=== PATIENT | female | born 1965 | race Two or more races ===

== ENCOUNTER 2019-01-07 08:05 | Inpatient (IN) | payer OTHER ==
[~2019-01-07] VITALS: Ht 160 cm; Wt 70.8 kg
[~2019-01-07 08:05] MED LIST: BENADRYL50 MG PO; CIPRO750 MG PO; CLONAZEPAM1 MG PO; DOCUSATE SODIU100 MG PO; GABAPENTIN800 MG PO; LAMICTAL PO; MORPHABOND; PERCOCET 5-3251 EACH PO; PERCOCET 5/3251 TAB PO; RESTORIL30 M1 PO; SEROQUEL200 MG PO; [UNRECOGNIZED DRUG - OTHER] PO; [UNRECOGNIZED DRUG - SUPPLY] PO
[2019-01-12] MEDS ORDERED: DOCUSATE SODIU100 MG PO (08:00)
[2019-01-12] MEDS ORDERED: AMOX-CLAV 875-1 EACH PO (08:01)
[2019-01-12] MEDS ORDERED: PERCOCET 5-3251 EACH PO (08:02)
[2019-01-12] MEDS ORDERED: RESTORIL30 M1 PO (08:02)
== END 2019-01-12 15:24 | disposition home or self-care (01) | DRG 517 ==
LOC: O/R 01-11 05:15 → SURG 01-11 05:15 → RECOVERY 01-11 11:37 → SURG 01-11 15:16 → RECOVERY 01-11 17:30 → SURG 01-12 13:53
PROVIDERS: ADMIT Orthopaedic Surgery Orthopaedic Surgery of the Spine
PROC: 4A12X4Z Monitoring of Cardiac Electrical Activity, External Approach (ICD-10-PCS; 2019-01-11)
PROC: 0QTS0ZZ Resection of Coccyx, Open Approach (ICD-10-PCS; principal; 2019-01-11 17:30)
DX: M53.3 Sacrococcygeal disorders, not elsewhere classified (principal); M51.37 Other intervertebral disc degeneration, lumbosacral region; M54.5 Low back pain

== ENCOUNTER 2019-02-17 08:43 | Outpatient (CLI) | payer OTHER ==
[~2019-02-17 08:43] MED LIST changes: +AMOX-CLAV 875-1 EACH PO
== END 2019-02-17 08:45 | disposition home or self-care (01) ==
LOC: RAD 08:43
DX: M51.36 Other intervertebral disc degeneration, lumbar region (principal); Z98.1 Arthrodesis status

== ENCOUNTER 2019-10-14 09:21 | Emergency (ER) | payer OTHER ==
[~2019-10-14] VITALS: Ht 160 cm; Wt 72.1 kg
[2019-10-14] MEDS ORDERED: KETOROLAC30 MG/1 ML IJ (09:52)
== END 2019-10-14 12:44 | disposition home or self-care (01) ==
LOC: ER 09:21
DX: S70.01XA Contusion of right hip, initial encounter (principal); W18.09XA Striking against other object with subsequent fall, initial encounter; Y93.01 Activity, walking, marching and hiking; Y92.89 Other specified places as the place of occurrence of the external cause; Y99.8 Other external cause status

== ENCOUNTER 2019-12-09 11:00 | Inpatient (IN) | payer OTHER ==
[~2019-12-09] VITALS: Ht 160 cm; Wt 68.5 kg
[~2019-12-09 11:00] MED LIST changes: +KETOROLAC30 MG/1 ML IJ
[2019-12-09] MEDS ORDERED: ZANAFLEX4 M1 PO (13:16)
[2019-12-09] MEDS ORDERED: RESTORIL30 M1 PO (13:17)
[2019-12-09] MEDS ORDERED: SEROQUEL XR200 MG (13:17)
[2019-12-09] MEDS ORDERED: GRALISE600 MG PO (13:18)
[2019-12-15] MEDS ORDERED: ETODOLAC200 MG PO (07:45)
[2019-12-15] MEDS ORDERED: LINZESS290 MCG PO (07:47)
[2019-12-15] MEDS ORDERED: LEXAPRO20 MG PO (07:48)
[2019-12-15] MEDS ORDERED: MEDROLPACK PO (10:57)
[2019-12-15] MEDS ORDERED: PERCOCET 5-3251 EACH PO (10:57)
[2019-12-15] MEDS ORDERED: RESTORIL30 M1 PO (10:57)
[2019-12-15] MEDS ORDERED: COLACE100 MG PO (10:57)
== END 2019-12-16 19:37 | DRG 473 ==
LOC: O/R 12-15 05:20 → SURG 12-15 05:20 → SURH 12-15 10:45 → O/R 12-15 11:00 → SURG 12-15 17:09
PROVIDERS: ADMIT Orthopaedic Surgery Orthopaedic Surgery of the Spine
PROC: 0RT30ZZ Resection of Cervical Vertebral Disc, Open Approach (ICD-10-PCS; 2019-12-15)
PROC: 0RG10A0 Fusion of Cervical Vertebral Joint with Interbody Fusion Device, Anterior Approach, Anterior Column, Open Approach (ICD-10-PCS; 2019-12-15)
PROC: 0RG20A0 Fusion of 2 or more Cervical Vertebral Joints with Interbody Fusion Device, Anterior Approach, Anterior Column, Open Approach (ICD-10-PCS; principal; 2019-12-15 10:45)
DX: M50.021 Cervical disc disorder at C4-C5 level with myelopathy (principal); M53.3 Sacrococcygeal disorders, not elsewhere classified; M48.02 Spinal stenosis, cervical region

== ENCOUNTER 2024-04-05 12:15 | Inpatient (IN) | payer OTHER ==
[~2024-04-05] VITALS: Ht 160 cm; Wt 73.5 kg
[~2024-04-05 12:15] MED LIST changes: +COLACE100 MG PO; +ETODOLAC200 MG PO; +GRALISE600 MG PO; +LEXAPRO20 MG PO; +LINZESS290 MCG PO; +MEDROLPACK PO; +SEROQUEL XR200 MG; +ZANAFLEX4 M1 PO
[2024-04-12] MEDS ORDERED: PERCOCET 5-3251 EACH PO (07:21)
[2024-04-12] MEDS ORDERED: MEDROLPACK PO (07:21)
[2024-04-12] MEDS ORDERED: BACTRIM DS TAB1 EACH PO (07:22)
[2024-04-12] MEDS ORDERED: COLACE100 MG PO (07:22)
[2024-04-12] MEDS ORDERED: NEURONTIN800 MG PO (07:23)
[2024-04-12] MEDS ORDERED: GABAPENTIN100 M2 PO (07:23)
[2024-04-12] MEDS ORDERED: ENALAPRILAT DIHYDRATE 1.25 MG/ML VIAL IV PRN (07:30)
[2024-04-12] MEDS ORDERED: 0.9 % SODIUM CHLORIDE 1,000 ML IV SCH (07:30)
[2024-04-12] MEDS ORDERED: PROMETHAZINE HCL 50 MG/ML AMPUL IM PRN (07:30)
[2024-04-12] MEDS ORDERED: MORPHINE SULFATE 4 MG,MORPHINE SULFATE 2 MG IV SCH (09:00)
[2024-04-12] MEDS ORDERED: FAMOtidine 20 MG TABLET PO SCH (09:00)
[2024-04-12] MEDS ORDERED: MORPHINE SULFATE 4 MG/ML VIAL IV SCH (09:00)
[2024-04-12] MEDS ORDERED: VANCOMYCIN HCL 1,000 MG in 0.9 % SODIUM CHLORIDE 250 ML IV SCH (09:00)
[2024-04-12] MEDS ORDERED: DOCUSATE SODIUM 100MG CAP PO SCH (09:00)
[2024-04-12] MEDS ORDERED: TAMSULOSIN HCL 0.4 MG CAP PO SCH (09:00)
[2024-04-12] MEDS ORDERED: CEFAZOLIN SODIUM 1,000 MG in 0.9 % SODIUM CHLORIDE 50 ML IV SCH (09:00)
[2024-04-12] MEDS ORDERED: METHYLPREDNISOLONE SOD SUCC 125 MG VIAL IV SCH (09:00)
[2024-04-12] MEDS ORDERED: CEFAZOLIN SODIUM 2,000 MG in 0.9 % SODIUM CHLORIDE 100 ML IV ONE (09:15)
[2024-04-12] MEDS ORDERED: VANCOMYCIN HCL 1,000 MG in 0.9 % SODIUM CHLORIDE 250 ML IV NR (09:15)
[2024-04-12] MEDS ORDERED: HEMOSTATIC MATRIX WITH THROMBIN KIT TOP ONE (09:15)
[2024-04-12] MEDS ORDERED: METHYLPREDNISOLONE SOD SUCC 125 MG VIAL IV ONE ×2 (09:15→09:30)
[2024-04-12] MEDS ORDERED: METHYLPREDNISOLONE ACETATE 80 MG/ML VIAL IJ ONE (09:30)
[2024-04-12] MEDS ORDERED: VANCOMYCIN HCL 1,000 MG VIAL IR ONE (09:30)
[2024-04-12] MEDS ORDERED: THROMBIN,HU/FIBRINOGEN/CALCIUM 4 ML SYRINGE TOP ONE (09:45)
[2024-04-12] MEDS ORDERED: TRANEXAMIC ACID 100MG/1ML (1000MG) AMPUL IV ONE (09:45)
[2024-04-12] MEDS ORDERED: GABAPENTIN 800 MG TABLET PO SCH (21:00)
[2024-04-12] MEDS ORDERED: ZOLPIDEM TARTRATE 10 MG TABLET PO SCH (21:00)
[2024-04-13] MEDS ORDERED: SODIUM CHLORIDE 0.45 % 1,000 ML IV SCH
[2024-04-13] MEDS ORDERED: OxyCODONE HCL/APAP UD (PERCOCET) PO PRN (06:01)
[2024-04-13 06:48] LABS: HEMATOCRIT 33.6 % (36.0-45.00); HEMOGLOBIN 11.3 g/dL (12.0-15.00); MEAN CELL VOLUME 85.5 fL (80.00-100.00); MEAN CORPUSCULAR HEMOGLOBIN 28.8 pg (27.00-32.0); MEAN CORPUSCULAR HGB CONC 33.7 g/dl (32.0-36.0); PLATELET COUNT 230 K/uL (150-450); RED BLOOD COUNT 3.94 M/uL (4.00-6.00)
[2024-04-13 07:04] LABS: CALCIUM 8.6 mg/dL (8.5-10.1); CREATININE SERUM 0.77 mg/dL (0.55-1.02); GFR 77.27; POTASSIUM 4.28 mEq/L (3.5-5.1)
== END 2024-04-14 12:43 | disposition home or self-care (01) | DRG 455 ==
LOC: O/R 04-12 04:40 → SURH 04-12 07:00 → PED 04-12 14:51
PROVIDERS: ADMIT Orthopaedic Surgery Orthopaedic Surgery of the Spine; ATTEND Orthopaedic Surgery Orthopaedic Surgery of the Spine
PROC: 0SG0071 Fusion of Lumbar Vertebral Joint with Autologous Tissue Substitute, Posterior Approach, Posterior Column, Open Approach (ICD-10-PCS; 2024-04-12)
PROC: 0ST20ZZ Resection of Lumbar Vertebral Disc, Open Approach (ICD-10-PCS; 2024-04-12)
PROC: 0QB30ZZ Excision of Left Pelvic Bone, Open Approach (ICD-10-PCS; 2024-04-12)
PROC: 07DR0ZZ Extraction of Iliac Bone Marrow, Open Approach (ICD-10-PCS; 2024-04-12)
PROC: 4A1104G Monitoring of Peripheral Nervous Electrical Activity, Intraoperative, Open Approach (ICD-10-PCS; 2024-04-12)
PROC: XRGB0R7 Fusion of Lumbar Vertebral Joint using Custom-Made Anatomically Designed Interbody Fusion Device, Open Approach, New Technology Group 7 (ICD-10-PCS; principal; 2024-04-12 07:00)
DX: M43.16 Spondylolisthesis, lumbar region (principal); M48.062 Spinal stenosis, lumbar region with neurogenic claudication; M51.36 Other intervertebral disc degeneration, lumbar region